=== PATIENT | female | born 1965 | race Two or more races ===

== ENCOUNTER 2018-08-19 14:04 | Emergency (ER) | payer OTHER ==
[~2018-08-19] VITALS: Ht 149.9 cm; Wt 80.7 kg
[2018-08-19 14:53] VITALS: BP 116/71
[2018-08-19] MEDS ORDERED: TETANUS-DIPTH-ACEL PERTUSSIS 0.5ML SYRG IM ONE (16:30)
[2018-08-19] MEDS ORDERED: AMOXICILLIN/CLAVUL 875 MG TAB PO ONE (16:30)
== END 2018-08-19 16:39 | disposition home or self-care (01) ==
LOC: ER 14:04
DX: S61.411A Laceration without foreign body of right hand, initial encounter (principal); W54.0XXA Bitten by dog, initial encounter; Y93.89 Activity, other specified; Y99.8 Other external cause status; Y92.89 Other specified places as the place of occurrence of the external cause
CPT/HCPCS: 90471; 90715